=== PATIENT | female | born 1945 | race Caucasian/White ===

== ENCOUNTER 2016-10-10 09:32 | Outpatient (CLI) | payer MEDICARE, OTHER | END 2016-10-10 09:33 | disposition home or self-care (01) | DX: I26.99 Other pulmonary embolism without acute cor pulmonale (principal) ==

== ENCOUNTER 2016-11-14 12:53 | Outpatient (CLI) | payer MEDICARE, OTHER | END 2016-11-14 12:54 | disposition home or self-care (01) | LOC: LAB 12:53 | PROVIDERS: ATTEND Internal Medicine Pulmonary Disease | DX: I26.99 Other pulmonary embolism without acute cor pulmonale (principal) | CPT/HCPCS: 85610 ==

== ENCOUNTER 2016-12-18 13:37 | Outpatient (CLI) | payer MEDICARE, OTHER | END 2016-12-18 13:38 | disposition home or self-care (01) | LOC: LAB 13:37 | PROVIDERS: ATTEND Internal Medicine Pulmonary Disease | DX: I26.99 Other pulmonary embolism without acute cor pulmonale (principal) | CPT/HCPCS: 85610; 85730 ==

== ENCOUNTER 2017-10-20 10:08 | Outpatient (CLI) | payer MEDICARE, OTHER | END 2017-10-20 10:09 | disposition home or self-care (01) | LOC: LAB 10:08 | PROVIDERS: ATTEND Internal Medicine Pulmonary Disease | DX: I80.9 Phlebitis and thrombophlebitis of unspecified site (principal) | CPT/HCPCS: 85610 ==

== ENCOUNTER 2017-11-25 09:20 | Outpatient (CLI) | payer MEDICARE, OTHER | END 2017-11-25 09:21 | disposition home or self-care (01) | LOC: LAB 09:20 | PROVIDERS: ATTEND Internal Medicine Pulmonary Disease | DX: I80.9 Phlebitis and thrombophlebitis of unspecified site (principal) | CPT/HCPCS: 85610 ==

== ENCOUNTER 2018-10-13 11:28 | Outpatient (CLI) | payer MEDICARE, OTHER | END 2018-10-13 11:29 | disposition home or self-care (01) | LOC: LAB 11:28 | PROVIDERS: ATTEND Internal Medicine Pulmonary Disease | DX: I80.9 Phlebitis and thrombophlebitis of unspecified site (principal) | CPT/HCPCS: 85610 ==

== ENCOUNTER 2018-10-28 08:00 | Outpatient (CLI) | payer MEDICARE, OTHER | END 2018-10-28 23:59 | disposition home or self-care (01) | LOC: LAB 08:00 | PROVIDERS: ATTEND Internal Medicine Pulmonary Disease | DX: I80.9 Phlebitis and thrombophlebitis of unspecified site (principal) | CPT/HCPCS: 85610 ==

== ENCOUNTER 2018-12-16 09:38 | Outpatient (CLI) | payer MEDICARE, OTHER | END 2018-12-16 09:39 | disposition home or self-care (01) | LOC: LAB 09:38 | PROVIDERS: ATTEND Internal Medicine Pulmonary Disease | DX: I80.9 Phlebitis and thrombophlebitis of unspecified site (principal) | CPT/HCPCS: 85610 ==

== ENCOUNTER 2019-11-04 13:43 | Outpatient (CLI) | payer MEDICARE, OTHER | END 2019-11-04 13:44 | disposition home or self-care (01) | LOC: LAB 13:43 | PROVIDERS: ATTEND Internal Medicine Pulmonary Disease | DX: I26.99 Other pulmonary embolism without acute cor pulmonale (principal) | CPT/HCPCS: 85610 ==

== ENCOUNTER 2019-11-24 10:17 | Outpatient (CLI) | payer MEDICARE, OTHER | END 2019-11-24 10:18 | disposition home or self-care (01) | LOC: LAB 10:17 | PROVIDERS: ATTEND Internal Medicine Pulmonary Disease | DX: I26.99 Other pulmonary embolism without acute cor pulmonale (principal) | CPT/HCPCS: 85610 ==

== ENCOUNTER 2019-12-22 11:00 | Outpatient (CLI) | payer MEDICARE, OTHER | END 2019-12-22 11:01 | disposition home or self-care (01) | LOC: LAB 11:00 | PROVIDERS: ATTEND Internal Medicine Pulmonary Disease | DX: I26.99 Other pulmonary embolism without acute cor pulmonale (principal) | CPT/HCPCS: 85610 ==

== ENCOUNTER 2020-02-02 10:40 | Outpatient (CLI) | payer MEDICARE, OTHER | END 2020-02-02 10:41 | disposition home or self-care (01) | LOC: LAB 10:40 | PROVIDERS: ATTEND Internal Medicine Pulmonary Disease | DX: I80.9 Phlebitis and thrombophlebitis of unspecified site (principal) | CPT/HCPCS: 85610 ==

== ENCOUNTER 2020-10-23 09:20 | Outpatient (CLI) | payer MEDICARE, OTHER | END 2020-10-23 09:21 | disposition home or self-care (01) | LOC: LAB 09:20 | PROVIDERS: ATTEND Internal Medicine Pulmonary Disease | DX: Z79.01 Long term (current) use of anticoagulants (principal) | CPT/HCPCS: 36416; 85610 ==

== ENCOUNTER 2020-11-26 10:38 | Outpatient (CLI) | payer MEDICARE, OTHER | END 2020-11-26 10:39 | disposition home or self-care (01) | LOC: LAB 10:38 | PROVIDERS: ATTEND Internal Medicine Pulmonary Disease | DX: I80.9 Phlebitis and thrombophlebitis of unspecified site (principal) | CPT/HCPCS: 36416; 85610 ==

== ENCOUNTER 2020-12-21 11:28 | Outpatient (CLI) | payer MEDICARE, OTHER | END 2020-12-21 11:29 | disposition home or self-care (01) | LOC: LAB 11:28 | PROVIDERS: ATTEND Internal Medicine Pulmonary Disease | DX: Z79.01 Long term (current) use of anticoagulants (principal) | CPT/HCPCS: 85610 ==

== ENCOUNTER 2023-12-04 12:14 | Outpatient (CLI) | payer MEDICARE, OTHER ==
--- NOTE | 2023-12-04 15:23 | XRAY Report ---
PROCEDURE: Knee 3V LT INDICATIONS: LEFT KNEE PAIN TECHNIQUE: 3 views of the knee(s) were acquired. COMPARISON: None. FINDINGS: Bones: There are moderate degenerative changes, particularly at the patellofemoral compartment. No ac melany displaced fracture or dislocation. Soft tissues: Chondrocalcinosis. Probable intra-articular ossified debris. Small joint effusion. IMPRESSION: Moderate degenerative changes particularly in the patellofemoral compartment, with chondrocalcinosis. Intra-articular debris. Small joint effusions. If there is high concern for further derangement, consider MRI evaluation. Reviewed by: Aureliano Landon MD on 12/04/2023 3:22 PM PDT Approved by: Aureliano Landon MD on 12/04/2023 3:22 PM PDT Station ID: [id number]
== END 2023-12-04 12:15 | disposition home or self-care (01) ==
LOC: DI 12:14
PROVIDERS: ATTEND Physician Assistant
DX: M17.12 Unilateral primary osteoarthritis, left knee (principal); M11.262 Other chondrocalcinosis, left knee; M25.462 Effusion, left knee